=== PATIENT | male | born 1940 | race Caucasian/White ===

== ENCOUNTER 2018-03-16 21:47 | Emergency (ER) | payer MEDICARE ==
--- NOTE | 2018-03-16 23:08 | EDM.PDOC ---
ED HPI GENERAL MEDICAL PROBLEM - General Chief Complaint: Headache Stated Complaint: HEADACHES FOR 3-4 DAYS Time Seen by Provider: 03/16/18 23:05 Source of Information: Reports: Patient History Limitations: Reports: No Limitations - History of Present Illness INITIAL COMMENTS - FREE TEXT/NARRATIVE: pt has had a severe headache for several days. He has not had visual symptoms. He does not have a history of headaches. He has not vomited. Onset: Other ( started several days ago and it has never gone away. ) Duration: Hour(s): Location: Reports: Head, Other ( It is behind the mid forehead area. 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: Other (see below) Other Treatments SHIRT LINE OPERATOR: Unknown - Related Data Allergies Allergy/AdvReac Type Severity Reaction Status Date / Time amoxicillin [Amoxicillin] Allergy Nausea and Verified 03/16/18 22:47 Vomiting Home Meds: Home Meds NK [No Known Home Meds] 04/22/14 [History] Past Medical History Genitourinary History: Reports: Prostate Disorder Oncologic (Cancer) History: Reports: Bladder, Prostate - Infectious Disease History Infectious Disease History: Reports: Chicken Pox - Past Surgical History GI Surgical History: Reports: Appendectomy Male Surgical History: Reports: TURP-Transurethral Resection of Prostate, Other (See Below) Other Male Surgeries/Procedures: Bladder surgery for cancer Social & Family History - Tobacco Use Smoking Status *Q: Never Smoker Second Hand Smoke Exposure: No - Caffeine Use Caffeine Use: Reports: Coffee - Recreational Drug Use Recreational Drug Use: No ED ROS GENERAL - Review of Systems Review Of Systems: See Below Constitutional: Reports: No Symptoms HEENT: Reports: Other (headache) Respiratory: Reports: No Symptoms Cardiovascular: Reports: No Symptoms Endocrine: Reports: No Symptoms GI/Abdominal: Reports: No Symptoms : Reports: No Symptoms Musculoskeletal: Reports: Other (pt does not have alot of neck pain. ) Skin: Reports: No Symptoms - Physical Exam Exam: See Below Text/Narrative:: pt arrived with a headache in the middle of the forehead. This has been there for several days. Exam Limited By: No Limitations General Appearance: Alert, Moderate Distress, Other (pupils are equal and reactive. ) Ears: Normal TMs Nose: Normal Inspection, Other (pt has mild tenderness present. ) Throat/Mouth: Normal Inspection Head Exam: Atraumatic Neck: Supple, Other (pt does not have alot of muscle spasm. ) Respiratory/Chest: No Respiratory Distress Cardiovascular: Regular Rate, Rhythm GI/Abdominal: Soft, Non-Tender (Male) Exam: Deferred Rectal (Males) Exam: Deferred Neuro Exam (Abbreviated): Alert, Normal Cognition Back Exam: Normal Inspection Extremities: Normal Inspection Course - Vital Signs Last Recorded V/S: Last Vital Signs Temp 35.0 C L 03/16/18 22:32 Pulse 53 L 03/16/18 22:32 Resp 16 03/16/18 22:32 BP 167/71 H 03/16/18 22:32 Pulse Ox 95 03/16/18 22:32 - Orders/Labs/Meds Orders: Active Orders 24 hr Category Date Time Status Head wo Cont [CT] Stat Exams 03/16/18 23:04 Ordered Labs: Laboratory Tests 03/16/18 03/16/18 Range/Units 23:10 23:10 WBC 7.1 (4.5-11.0) K/uL RBC 4.24 L (4.30-5.90) M/uL Hgb 12.8 (12.0-15.0) g/dL Hct 37.1 L (40.0-54.0) % MCV 88 (80-98) fL MCH 30 (27-31) pg MCHC 35 (32-36) % Plt Count 304 (150-400) K/uL Neut % (Auto) 50 (36-66) % Lymph % (Auto) 25 (24-44) % [place] % (Auto) 8 H (2-6) % Eos % (Auto) 15 H (2-4) % Baso % (Auto) 1 (0-1) % Sodium 139 L (140-148) mmol/L Potassium 4.2 (3.6-5.2) mmol/L Chloride 104 (100-108) mmol/L Carbon Dioxide 26 (21-32) mmol/L Anion Gap 13.2 (5.0-14.0) mmol/L BUN 16 (7-18) mg/dL Creatinine 1.0 (0.8-1.3) mg/dL Est Cr Clr Drug Dosing 67.98 mL/min Estimated GFR (MDRD) > 60 (>60) Glucose 94 (74-106) mg/dL Calcium 8.9 (8.5-10.1) mg/dL Total Bilirubin 0.2 (0.2-1.0) mg/dL AST 17 (15-37) U/L ALT 20 (12-78) U/L Alkaline Phosphatase 89 (46-116) U/L Total Protein 6.8 (6.4-8.2) g/dL Albumin 3.1 L (3.4-5.0) g/dL Globulin 3.7 H (2.3-3.5) g/dL Albumin/Globulin Ratio 0.8 L (1.2-2.2) Meds: Medications Discontinued Medications Generic Name Dose Route Start Last Admin Trade Name Freq PRN Reason Stop Dose Admin Ceftriaxone Sodium 1 gm/ 0 gm 03/17/18 00:03 Lidocaine HCl 2.1 ml IM 03/17/18 00:04 ONETIME ONE Ketorolac Tromethamine 60 mg 03/17/18 00:04 Toradol IM 03/17/18 00:05 ONETIME ONE - Re-Assessments/Exams Free Text/Narrative Re-Assessment/Exam: 03/17/18 00:05 pt had a cat scan of the head which was neg except for a sphenoid sinusitis. His wbc is not high but he has a marked eosinophilia. 03/17/18 00:05 Departure - Departure Time of Disposition: 00:06 Disposition: Home, Self-Care 01 Condition: Fair Clinical Impression: Sphenoid sinusitis, Eosinophilia - Discharge Information Referrals: PCP,None [Primary Care Provider] - Forms: ED Department Discharge Care Plan Goals: cool mist humidifier. keflex 500mg qid for sinus infection, follow up with regular physian, copy lab work for him to take to his appointment. tramodol 50mg q6h as needed for pain. - My Orders Last 24 Hours: My Active Orders 03/16/18 23:04 Head wo Cont [CT] Stat - Assessment/Plan Last 24 Hours: My Active Orders 03/16/18 23:04 Head wo Cont [CT] Stat
[2018-03-17] MEDS ORDERED: cefTRIAXone 1 GM, Lidocaine 1% 2.1 ML IM ONE ×2 (00:03)
[2018-03-17] MEDS ORDERED: Ketorolac 60 MG/2 ML SDV IM ONE (00:04)
== END 2018-03-17 01:03 | disposition home or self-care (01) ==
LOC: JP.ED 21:47
DX: J32.3 Chronic sphenoidal sinusitis (principal); D72.1 Eosinophilia; Z85.46 Personal history of malignant neoplasm of prostate; Z85.51 Personal history of malignant neoplasm of bladder; Z88.1 Allergy status to other antibiotic agents
CPT/HCPCS: 36415; 70450; 80053; 85025; 96372; 99284; J0696; J1885